=== PATIENT | female | born 1950 ===

== ENCOUNTER 2017-06-14 16:49 | Emergency (ER) | payer MEDICARE, MEDICAID ==
[2017-06-14 17:18] VITALS: BP 129/81; PULSE 69; RESP 18; TEMP 97.9; O2SAT 99
--- NOTE | 2017-06-14 18:54 | ED PDOC ---
Upper Extremity Pain/Injury Time Seen by Provider: 06/14/17 18:45 Chief Complaint (Nursing): Upper Extremity Problem/Injury Chief Complaint (Provider): Left Shoulder Pain History/Exam Limitations: no limitations Onset/Duration Of Symptoms: Days Current Symptoms Are (Timing): Still Present Quality: "Pain" Exacerbating Factor(s): Movement Additional Complaint(s): 67 year old female presents to the ED complaining of left shoulder pain that had progressively gotten worse. The patient states that she was given naproxen for pain but it wiseman her stomach and so she has not been taking it. As per daughter, the patient is scheduled to have an MRI performed for a rotator cuff. Patient states that she cannot lift harm arm due to pain. PMD: [facility] Past Medical History Reviewed: Historical Data, Nursing Documentation, Vital Signs Vital Signs: Last Vital Signs Temp 97.9 F 06/14/17 17:15 Pulse 69 06/14/17 17:15 Resp 18 06/14/17 17:15 BP 129/81 06/14/17 17:15 Pulse Ox 99 06/14/17 17:15 - Medical History PMH: No Chronic Diseases - Surgical History Surgical History: No Surg Hx - Family History Family History: States: Unknown Family Hx - Living Arrangements Living Arrangements: With Family - Social History Current smoker - smoking cessation education provided: No Ex-Smoker (has not smoked in the last 12 months): No Alcohol: None Drugs: Denies - Home Medications Home Medications: Ambulatory Orders Medication Instructions Recorded Acetaminophen [Acetaminophen Extra 2 tab PO Q6 PRN #24 tablet 06/14/17 Strength] Lansoprazole [Prevacid] 30 mg PO DAILY #14 capsule. 06/14/17 Tramadol HCl [Ultram] 1 tab PO Q12 PRN #8 tablet 06/14/17 - Allergies Allergies/Adverse Reactions: Allergies Allergy/AdvReac Type Severity Reaction Status Date / Time No Known Allergies Allergy Verified 06/14/17 17:15 Physical Exam - Reviewed Nursing Documentation Reviewed: Yes Vital Signs Reviewed: Yes - Physical Exam Appears: Positive for: Non-toxic, No Acute Distress Skin: Positive for: Normal Color, Warm, Dry. Negative for: Rash Eye Exam: Positive for: Normal appearance, EOMI, PERRL Cardiovascular/Chest: Positive for: Regular Rate, Rhythm, Chest Non Tender. Negative for: Tachycardia Respiratory: Positive for: Normal Breath Sounds. Negative for: Wheezing, Respiratory Distress Extremity: Positive for: Normal ROM (Limited ROM of left shoulder on exam secondary to pain), Tenderness (Anterior AC joint tenderness), Other (Anterior AC joint pain). Negative for: Deformity, Swelling Neurologic/Psych: Positive for: Alert, Oriented - ECG O2 Sat by Pulse Oximetry: 99 (RA) Pulse Ox Interpretation: Normal Medical Decision Making Medical Decision Makin Initial Impression 67 y/o female presenting with left shoulder pain Initial Plan: * Reevaluation PROCEDURE: Radiographs of the Left Shoulder - Performed 05/19/2017 HISTORY: M75.02 COMPARISON: No prior. FINDINGS: BONES: No acute fracture. JOINTS: Mild acromioclavicular degenerative changes. SOFT TISSUES: Normal. OTHER FINDINGS: None. IMPRESSION: No demonstrated fracture or dislocation. Documented by Danelle Ashley acting as a scribe for Torey Samuel PA-C. All medical record entries made by the Scribe were at my direction and personally dictated by me. I have reviewed the chart and agree that the record accurately reflects my personal performance of the history, physical exam, medical decision making, and the department course for this patient. I have also personally directed, reviewed, and agree with the discharge instructions and disposition. Disposition - Clinical Impression Clinical Impression: Shoulder pain - Disposition Condition: FAIR Prescriptions: Acetaminophen [Acetaminophen Extra Strength] 2 tab PO Q6 PRN #24 tablet PRN Reason: Pain, Moderate (4-7) Lansoprazole [Prevacid] 30 mg PO DAILY #14 capsule. Tramadol HCl [Ultram] 1 tab PO Q12 PRN #8 tablet PRN Reason: Pain, Severe (8-10) Instructions: Shoulder Sprain (ED) Forms: [employer] (Latvian) Print Language: LAO
== END 2017-06-14 19:21 | disposition home or self-care (01) ==
LOC: H.ER 16:49
DX: M25.512 Pain in left shoulder (principal)

== ENCOUNTER 2017-06-17 09:53 | Emergency (ER) | payer MEDICARE, MEDICAID ==
[2017-06-17 10:25] VITALS: BMI 27.6
[2017-06-17 10:30] VITALS: RESP 18; O2SAT 98
--- NOTE | 2017-06-17 11:29 | ED PDOC ---
HPI: CCC, URI, Sore Throat Time Seen by Provider: 06/17/17 10:42 Chief Complaint (Nursing): ENT Problem Chief Complaint (Provider): Sore throat History Per: Patient Additional Complaint(s): 67 yo female, PMH of Hypothyroid, presents to ED with complaints of sorethroat, pain upon swallowing since last night. No fever or chills, SOB, cough, congestion. no medications taken to alleviate symptoms thus far Past Medical History Reviewed: Nursing Documentation, Vital Signs Vital Signs: Last Vital Signs Temp 97.7 F 06/17/17 10:27 Pulse 61 06/17/17 10:27 Resp 18 06/17/17 10:27 BP 120/81 06/17/17 10:27 Pulse Ox 98 06/17/17 11:29 - Medical History PMH: No Chronic Diseases - Surgical History Surgical History: No Surg Hx - Family History Family History: States: Unknown Family Hx - Living Arrangements Living Arrangements: With Family - Social History Current smoker - smoking cessation education provided: No Ex-Smoker (has not smoked in the last 12 months): Yes Alcohol: None Drugs: Denies - Home Medications Home Medications: Ambulatory Orders Medication Instructions Recorded Acetaminophen [Acetaminophen Extra 2 tab PO Q6 PRN #24 tablet 06/14/17 Strength] Lansoprazole [Prevacid] 30 mg PO DAILY #14 capsule.dr 06/14/17 Tramadol HCl [Ultram] 1 tab PO Q12 PRN #8 tablet 06/14/17 Guaifenesin/Pseudoephedrne HCl 1 tab PO DAILY PRN #30 ter 06/17/17 [Mucinex D 600 mg-60 mg] Ibuprofen [Motrin] 600 mg PO Q6 #20 tab 06/17/17 - Allergies Allergies/Adverse Reactions: Allergies Allergy/AdvReac Type Severity Reaction Status Date / Time No Known Allergies Allergy Verified 06/14/17 17:15 Review of Systems ROS Statement: Except As Marked, All Systems Reviewed And Found Negative ENT: Positive for: Throat Pain Physical Exam - Reviewed Nursing Documentation Reviewed: Yes Vital Signs Reviewed: Yes - Physical Exam Appears: Positive for: Well, Non-toxic, No Acute Distress Head Exam: Positive for: ATRAUMATIC, NORMAL INSPECTION, NORMOCEPHALIC Skin: Positive for: Normal Color, Warm, DRY Eye Exam: Positive for: EOMI, Normal appearance, PERRL ENT: Positive for: Normal ENT Inspection, Pharyngeal Erythema. Negative for: Tonsillar Exudate, Tonsillar Swelling Neck: Positive for: Normal, Painless ROM Cardiovascular/Chest: Positive for: Regular Rate, Rhythm Respiratory: Positive for: CNT, Normal Breath Sounds Gastrointestinal/Abdominal: Positive for: Normal Exam, Bowel Sounds, Soft Back: Positive for: Normal Inspection Extremity: Positive for: Normal ROM Neurologic/Psych: Positive for: Alert, Oriented - ECG O2 Sat by Pulse Oximetry: 98 Medical Decision Making Medical Decision Making: strep negative. physical exam findings benign Supportive care measures discussed Disposition - Clinical Impression Clinical Impression: Pharyngitis - Patient ED Disposition Is Patient to be Admitted: No - Disposition Disposition: Routine/Home Disposition Time: 13:49 Condition: STABLE Prescriptions: Guaifenesin/Pseudoephedrne HCl [Mucinex D 600 mg-60 mg] 1 tab PO DAILY PRN #30 ter PRN Reason: congestion Ibuprofen [Motrin] 600 mg PO Q6 #20 tab Instructions: Pharyngitis (ED) Forms: [employer] (Setswana) Print Language: KOSOVAN - POA Present On Arrival: None
[2017-06-17 14:19] VITALS: BP 120/80; PULSE 80; TEMP 98.6
== END 2017-06-17 14:19 | disposition home or self-care (01) ==
LOC: H.ER 09:53
DX: J02.9 Acute pharyngitis, unspecified (principal); E03.9 Hypothyroidism, unspecified

== ENCOUNTER 2017-08-31 22:42 | Emergency (ER) | payer MEDICARE, MEDICAID ==
[2017-08-31 22:43] VITALS: BMI 27.6
[2017-08-31] MEDS ORDERED: Hydrogen Peroxide 3% Soln (480ml) TP ONE (22:51)
--- NOTE | 2017-08-31 23:14 | ED PDOC ---
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 Patient states that she was attempting to sit on her bed when she slipped, fell back, and hit her head on the corner of the wall. (-) LOC, nausea, vomiting, focal weakness, or blurry vision. (+) lightheadedness and laceration to posterior head. Family notes that patient seems confused and "out of it". Pt had taken tramadol prior to trying to go to bed. PCP: Clinic Past Medical History Reviewed: Historical Data, Nursing Documentation, Vital Signs Vital Signs: Last Vital Signs Temp 97.7 F 08/31/17 22:45 Pulse 85 08/31/17 22:45 Resp 18 08/31/17 22:45 BP 192/78 H 08/31/17 22:45 Pulse Ox 97 08/31/17 22:45 - Medical History PMH: HTN, Hypercholesterolemia, Hypothyroidism, Chronic Pain (left shoulder) - Surgical History Surgical History: Denies: No Surg Hx Other surgeries: tubal ligation, thyroid surgery - Family History Family History: States: Diabetes, Hypertension - Social History Current smoker - smoking cessation education provided: No Ex-Smoker (has not smoked in the last 12 months): No Alcohol: None Drugs: Denies - Home Medications Home Medications: Ambulatory Orders Medication Instructions Recorded Acetaminophen [Acetaminophen Extra 2 tab PO Q6 PRN #24 tablet 06/14/17 Strength] Lansoprazole [Prevacid] 30 mg PO DAILY #14 capsule. 06/14/17 Tramadol HCl [Ultram] 1 tab PO Q12 PRN #8 tablet 06/14/17 Guaifenesin/Pseudoephedrne HCl 1 tab PO DAILY PRN #30 ter 06/17/17 [Mucinex D 600 mg-60 mg] Ibuprofen [Motrin] 600 mg PO Q6 #20 tab 06/17/17 - Allergies Allergies/Adverse Reactions: Allergies Allergy/AdvReac Type Severity Reaction Status Date / Time No Known Allergies Allergy Verified 06/14/17 17:15 Review of Systems ROS Statement: Except As Marked, All Systems Reviewed And Found Negative Eyes: Negative for: Vision Change Gastrointestinal: Negative for: Nausea, Vomiting Musculoskeletal: Positive for: Other ((+) head pain: posterior head laceration) Neurological: Positive for: Other ((+) lightheadedness, (-) LOC). Negative for : Weakness Physical Exam - Reviewed Nursing Documentation Reviewed: Yes Vital Signs Reviewed: Yes - Physical Exam Appears: Positive for: Non-toxic, No Acute Distress (but tired appearing) Head Exam: Positive for: NORMOCEPHALIC. Negative for: ATRAUMATIC (1.5 cm linear superficial laceration on the right occiput. Boggy hematoma underlying the laceration.) Skin: Positive for: Normal Color, Warm, Dry Eye Exam: Positive for: Normal appearance, EOMI, PERRL ENT: Positive for: Normal ENT Inspection ((-) hemotympanum bilaterally) Neck: Positive for: Painless ROM, Supple Cardiovascular/Chest: Positive for: Regular Rate, Rhythm. Negative for: Murmur Respiratory: Positive for: Normal Breath Sounds. Negative for: Respiratory Distress Gastrointestinal/Abdominal: Positive for: Soft. Negative for: Tenderness Back: Positive for: Normal Inspection. Negative for: Decreased ROM Extremity: Positive for: Normal ROM. 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 Negative for: Facial Droop - Laboratory Results Result Diagrams: 08/31/17 23:28 08/31/17 23:28 - ECG O2 Sat by Pulse Oximetry: 97 (RA) Pulse Ox Interpretation: Normal Medical Decision Making Medical Decision Makin Initial impression: head injury, fall, scalp laceration DDx: traumatic brain injury, dehydration, adverse drug reaction, skull fracture Initial plan: * T&S * CT HEAD * EtOH serum * Labs * Magnesium * Phosphorus * PTT/PT EXAM: CT Head Without Intravenous Contrast CLINICAL HISTORY: 67 years old, female; Injury or trauma; Injury Patient states: She hit her head against, the corner of the wall; Initial encounter; Bleeding / hemorrhage; Additional info: Head injury TECHNIQUE: Axial computed tomography images of the head/brain without intravenous contrast. All CT scans at this facility use one or more dose reduction techniques, viz.: automated exposure control; ma/kV adjustment per patient size (including targeted exams where dose is matched to indication; i.e. head); or iterative reconstruction technique. Coronal and sagittal reformatted images were created and reviewed. COMPARISON: No relevant prior studies available. FINDINGS: Brain: Mild atrophy. No intracranial hemorrhage. No mass. Few scattered foci of decreased attenuation within periventricular/subcortical white matter. No edema. Ventricles: No hydrocephalus. Bones/joints: No acute fracture. Few small lucent calvarial lesions, nonspecific. Soft tissues: Minimal right occipital parietal soft tissue swelling. Vasculature: Mild atherosclerotic disease of intracranial arteries. Sinuses: Mild mucosal thickening of frontal, maxillary, sphenoid sinuses. Moderate to extensive mucosal thickening of ethmoid sinuses. Small air-fluid levels within maxillary sinuses. Mastoid air cells: No mastoid effusion. Orbits: Unremarkable as visualized. IMPRESSION: 1. No intracranial hemorrhage. 2. Nonspecific white matter changes. 3. Sinus disease. 4. Incidental/non-acute findings are described above. Thank you for allowing us to participate in the care of your patient. Dictated and Authenticated by: Matt Ronquillo MD Scalp and wound cleaned with peroxide. Wound well approximated with no gaping. Bacitracin applied to wound and gauze applied under ice pack. No need for skin asif/sutures. 2342 CT HEAD FINDINGS: Brain: Mild atrophy. No intracranial hemorrhage. No mass. Few scattered foci of decreased attenuation within periventricular/subcortical white matter. No edema. Ventricles: No hydrocephalus. Bones/joints: No acute fracture. Few small lucent calvarial lesions, nonspecific. Soft tissues: Minimal right occipital parietal soft tissue swelling. Vasculature: Mild atherosclerotic disease of intracranial arteries. Sinuses: Mild mucosal thickening of frontal, maxillary, sphenoid sinuses. Moderate to extensive mucosal thickening of ethmoid sinuses. Small air-fluid levels within maxillary sinuses. Mastoid air cells: No mastoid effusion. Orbits: Unremarkable as visualized. IMPRESSION: 1. No intracranial hemorrhage. 2. Nonspecific white matter changes. 3. Sinus disease. 4. Incidental/non-acute findings are described above. 0000 Discussed with patient and family the imaging results. Patient verbalized understanding. Discussed case with family practice resident to schedule urgent follow up in 1-2 days. Blood pressure normalized without any medication. Patient is stable for discharge. Scribe Attestation: Documented by Raegan Guillory acting as a scribe for Anh Anderson MD. Scribe Attestation: All medical record entries made by the Scribe were at my direction and personally dictated by me. I have reviewed the chart and agree that the record accurately reflects my personal performance of the history, physical exam, medical decision making, and the department course for this patient. I have also personally directed, reviewed, and agree with the discharge instructions and disposition. Disposition - Clinical Impression Clinical Impression: Head injury, closed, Scalp laceration Counseled Patient/Family Regarding: Studies Performed, Diagnosis, Need For Followup - Disposition Referrals: [facility] [Outside] - 09/02/17 (CALL TOMORROW TO SETUP FOLLOW UP APPOINTMENT WITHINT 48 HOURS FOR REEVALUATION) Disposition: Routine/Home Disposition Time: 23:58 Condition: IMPROVED Instructions: Preventing Falls in the Older Adult, Wound Care (DC), Closed Head Injury (DC)
[2017-08-31 23:30] LABS: BASO % 0.7 % (0.0-2.0); EOS # 0.5 K/uL (0.0-0.7); EOS % 7.7 % (0.0-4.0); HEMOGLOBIN 11.2 g/dL (12.0-16.0); LYMPH # 1.6 K/uL (1.0-4.3); LYMPH % 23.9 % (20.0-40.0); MEAN CELL VOLUME 88.4 fl (81.0-99.0); MEAN CORPUSCULAR HEMOGLOBIN 29.2 pg (27.0-31.0); MEAN CORPUSCULAR HGB CONC 33.1 g/dL (33.0-37.0); MEAN PLATELET VOLUME 8.1 fl (7.2-11.7); MONO # 0.5 K/uL (0.0-0.8); MONO % 8.2 % (0.0-10.0); NEUT # 3.9 K/uL (1.8-7.0); NEUT % 59.5 % (50.0-75.0); NRBC % 0.1 % (0.0-0.0); RBC 3.83 Mil/uL (3.80-5.20); RED CELL DISTRIBUTION WIDTH 13.4 % (11.5-14.5); WHITE BLOOD COUNT 6.6 K/uL (4.8-10.8)
[2017-08-31] MEDS ORDERED: Alum-Mag Hydrox-Simethicone Susp (30 mL) PO STA (23:38)
[2017-08-31 23:40] LABS: ALB/GLOB RATIO 1.2 (1.0-2.1); ALBUMIN 3.8 g/dL (3.5-5.0); ALT/SGPT 30 U/L (9-52); AST/SGOT 35 U/L (14-36); BLOOD UREA NITROGEN 21 mg/dl (7-17); CALCIUM 8.9 mg/dL (8.4-10.2); GFR AFRICAN-AMERICAN > 60; GFR NON-AFRICAN AMERICAN > 60
--- NOTE | 2017-08-31 23:42 | CT ---
EXAM: CT Head Without Intravenous Contrast CLINICAL HISTORY: 67 years old, female; Injury or trauma; Injury Patient states: She hit her head against, the corner of the wall; Initial encounter; Bleeding / hemorrhage; Additional info: Head injury TECHNIQUE: Axial computed tomography images of the head/brain without intravenous contrast. All CT scans at this facility use one or more dose reduction techniques, viz.: automated exposure control; ma/kV adjustment per patient size (including targeted exams where dose is matched to indication; i.e. head); or iterative reconstruction technique. Coronal and sagittal reformatted images were created and reviewed. COMPARISON: No relevant prior studies available. FINDINGS: Brain: Mild atrophy. No intracranial hemorrhage. No mass. Few scattered foci of decreased attenuation within periventricular/subcortical white matter. No edema. Ventricles: No hydrocephalus. Bones/joints: No acute fracture. Few small lucent calvarial lesions, nonspecific. Soft tissues: Minimal right occipital parietal soft tissue swelling. Vasculature: Mild atherosclerotic disease of intracranial arteries. Sinuses: Mild mucosal thickening of frontal, maxillary, sphenoid sinuses. Moderate to extensive mucosal thickening of ethmoid sinuses. Small air-fluid levels within maxillary sinuses. Mastoid air cells: No mastoid effusion. Orbits: Unremarkable as visualized. IMPRESSION: 1. No intracranial hemorrhage. 2. Nonspecific white matter changes. 3. Sinus disease. 4. Incidental/non-acute findings are described above.
[2017-09-01 00:01] LABS: PARTIAL THROMBOPLASTIN TIME 31.2 Seconds (25.6-37.1); PROTHROMBIN TIME 11.4 Seconds (9.8-13.1)
[2017-09-01 00:08] VITALS: BP 121/63; PULSE 69; RESP 18; TEMP 97.8
[2017-09-01 16:31] VITALS: O2SAT 97
== END 2017-09-01 00:20 | disposition home or self-care (01) ==
LOC: H.ER 22:42
DX: S01.01XA Laceration without foreign body of scalp, initial encounter (principal); Z87.891 Personal history of nicotine dependence; G89.29 Other chronic pain; I10 Essential (primary) hypertension; E03.9 Hypothyroidism, unspecified; E78.00 Pure hypercholesterolemia, unspecified; W01.0XXA Fall on same level from slipping, tripping and stumbling without subsequent striking against object, initial encounter
CPT/HCPCS: 70450; 80053; 82948; 83735; 84100; 85025; 85610; 85730; 86850; 86900; 99284; G0480

== ENCOUNTER 2018-02-13 12:31 | Emergency (ER) | payer MEDICARE, MEDICAID ==
[2018-02-13 12:38] VITALS: BP 136/79; PULSE 77; RESP 16; TEMP 97.6; O2SAT 98
[2018-02-13 12:39] VITALS: BMI 23.3
--- NOTE | 2018-02-13 12:54 | ED PDOC ---
HPI: Allergic Reaction Time Seen by Provider: 02/13/18 12:46 Chief Complaint (Nursing): Allergic Reaction Chief Complaint (Provider): Allergic reaction History Per: Patient History/Exam Limitations: no limitations Onset/Duration Of Symptoms: Days (4x days) Current Symptoms Are (Timing): Still Present Context: Food (pumpkin pie) Home/EMS Treatment: Benadryl Additional Complaint(s): 68 year old female with no pertinent past medical history presents to the ED with complaints of an allergic reaction that started 4x days ago. Patient reports feeling itchiness "everywhere", and swelling on her face after eating pumpkin pie 4x days ago. Patient reports taking benadryl with no relief. Patient denies shortness of breath and throat discomfort. PMD: [facility] Past Medical History Reviewed: Historical Data, Nursing Documentation, Vital Signs Vital Signs: Last Vital Signs Temp 97.6 F 02/13/18 12:37 Pulse 77 02/13/18 12:37 Resp 16 02/13/18 12:37 BP 136/79 02/13/18 12:37 Pulse Ox 98 02/13/18 12:37 - Medical History PMH: Hypercholesterolemia, Hypothyroidism, Chronic Pain (left shoulder) - Surgical History Other surgeries: thyroid surgery, tubal ligation - Family History Family History: States: Diabetes, Hypertension - Living Arrangements Living Arrangements: With Family - Social History Current smoker - smoking cessation education provided: No Alcohol: None Drugs: Denies - Home Medications Home Medications: Ambulatory Orders Medication Instructions Recorded Acetaminophen [Acetaminophen Extra 2 tab PO Q6 PRN #24 tablet 06/14/17 Strength] Lansoprazole [Prevacid] 30 mg PO DAILY #14 capsule. 06/14/17 Tramadol HCl [Ultram] 1 tab PO Q12 PRN #8 tablet 06/14/17 Guaifenesin/Pseudoephedrne HCl 1 tab PO DAILY PRN #30 ter 06/17/17 [Mucinex D 600 mg-60 mg] Ibuprofen [Motrin] 600 mg PO Q6 #20 tab 06/17/17 Prednisone 50 mg PO DAILY #6 tablet 02/13/18 - Allergies Allergies/Adverse Reactions: Allergies Allergy/AdvReac Type Severity Reaction Status Date / Time No Known Allergies Allergy Verified 06/14/17 17:15 Review of Systems ROS Statement: Except As Marked, All Systems Reviewed And Found Negative Constitutional: Negative for: Fever, Chills Skin: Positive for: Other (itchiness, swelling). Negative for: Rash Physical Exam - Reviewed Nursing Documentation Reviewed: Yes Vital Signs Reviewed: Yes - Physical Exam Appears: Positive for: Well, Non-toxic, No Acute Distress Head Exam: Positive for: ATRAUMATIC, NORMOCEPHALIC Skin: Positive for: Warm, Dry Eye Exam: Positive for: Periorbital swelling (bilateral), Other (no periorbital cellulitis) Cardiovascular/Chest: Positive for: Regular Rate, Rhythm Respiratory: Positive for: Normal Breath Sounds. Negative for: Wheezing, Respiratory Distress Extremity: Positive for: Other (slight erythema noted to upper extremities bilterally). Negative for: Pedal Edema Neurologic/Psych: Positive for: Alert, Oriented (3x) - ECG O2 Sat by Pulse Oximetry: 98 (RA) Pulse Ox Interpretation: Normal Disposition - Clinical Impression Clinical Impression: Allergic reaction - Patient ED Disposition Is Patient to be Admitted: No Counseled Patient/Family Regarding: Diagnosis, Need For Followup, Rx Given - Disposition Referrals: [facility] [Outside] Disposition: Routine/Home Disposition Time: 13:14 Condition: STABLE Additional Instructions: Continue with 2 tablets of benadryl every 6 hrs and take along with rx meds. Follow up next week with primary care doctor. Prescriptions: Prednisone 50 mg PO DAILY #6 tablet Instructions: Food Allergy Forms: [employer] ([place]) Medical Decision Making - Medication Orders Current Medication Orders: Discontinued Medications Methylprednisolone (Solu-Medrol) 125 mg IVP STAT STA Stop: 02/13/18 12:51 Last Admin: 02/13/18 12:55 Dose: 125 mg IVP Administration Document 02/13/18 12:55 ALQ (Rec: 02/13/18 12:55 ALQ [id number]) Charges for Administration # of IVP Administrations 1 Medical Decision Making Medical Decision Makin:46 Initial impression: 68 year old female with an allergic reaction Initial plan: * solumedrol 125 mg IVP Patient will be discharged home with Rx for prednisone and instructions to continue taking benadryl. Counseling was provided and all questions were answered regarding diagnosis. There is agreement to discharge plan. Return if symptoms persist or worsen. Scribe Attestation: Documented by Maida Triplett, acting as a scribe for Anh Logan PA-C. Provider Scribe Attestation: All medical record entries made by the Scribe were at my direction and personally dictated by me. I have reviewed the chart and agree that the record accurately reflects my personal performance of the history, physical exam, medical decision making, and the department course for this patient. I have also personally directed, reviewed, and agree with the discharge instructions and disposition.
== END 2018-02-13 13:45 | disposition home or self-care (01) ==
LOC: H.ER 12:31
DX: T78.40XA Allergy, unspecified, initial encounter (principal); E78.00 Pure hypercholesterolemia, unspecified; G89.29 Other chronic pain; E03.9 Hypothyroidism, unspecified
CPT/HCPCS: 96374; 99283; J2930

== ENCOUNTER 2018-03-16 19:11 | Emergency (ER) | payer MEDICAID, MEDICARE ==
[2018-03-16 19:12] VITALS: BMI 23.3
[2018-03-16 19:21] VITALS: TEMP 97.5; O2SAT 100
--- NOTE | 2018-03-16 20:51 | ED PDOC ---
HPI: Allergic Reaction Time Seen by Provider: 03/16/18 19:22 Chief Complaint (Nursing): Allergic Reaction Chief Complaint (Provider): Rash - Itchy History Per: Patient History/Exam Limitations: no limitations Onset/Duration Of Symptoms: Days (x3) Associated Symptoms: Skin Rash Additional Complaint(s): 68 y/o female presents to the ED complaining of itchy rash on her neck for x3 days. Patient denies any similar symptoms in the past. Patient states she was seen at the clinic and she has taken Benadryl but it provided no relief. Patient denies any changes in diet, clothing, or any other changes to behavior or environment. She denies shortness of breath or swelling in and around mouth. Patient states it was so itchy yesterday night that she couldn't sleep prompting ED visit. Past Medical History Reviewed: Historical Data, Nursing Documentation, Vital Signs Vital Signs: Last Vital Signs Temp 97.5 F L 03/16/18 19:17 Pulse 79 03/16/18 19:17 Resp 18 03/16/18 19:17 BP 108/78 03/16/18 19:17 Pulse Ox 100 03/16/18 19:17 - Medical History PMH: Hypercholesterolemia, Hypothyroidism, Chronic Pain (left shoulder) Denies: Asthma, Diabetes, HTN (patient denies), Chronic Kidney Disease - Surgical History Surgical History: No Surg Hx - Family History Family History: States: Unknown Family Hx, Diabetes, Hypertension - Home Medications Home Medications: Ambulatory Orders Medication Instructions Recorded Acetaminophen [Acetaminophen Extra 2 tab PO Q6 PRN #24 tablet 06/14/17 Strength] Lansoprazole [Prevacid] 30 mg PO DAILY #14 capsule. 06/14/17 Tramadol HCl [Ultram] 1 tab PO Q12 PRN #8 tablet 06/14/17 Guaifenesin/Pseudoephedrne HCl 1 tab PO DAILY PRN #30 ter 06/17/17 [Mucinex D 600 mg-60 mg] Ibuprofen [Motrin] 600 mg PO Q6 #20 tab 06/17/17 Prednisone 50 mg PO DAILY #6 tablet 02/13/18 predniSONE [predniSONE Tab] 20 mg PO DAILY #12 tab 03/16/18 - Allergies Allergies/Adverse Reactions: Allergies Allergy/AdvReac Type Severity Reaction Status Date / Time almond Allergy RASH Verified 11/13/18 19:22 peanut Allergy RASH Verified 03/16/18 19:22 hot sauce Allergy RASH Uncoded 03/16/18 19:22 Review of Systems ROS Statement: Except As Marked, All Systems Reviewed And Found Negative ENT: Negative for: Throat Swelling Respiratory: Negative for: Shortness of Breath Skin: Positive for: Rash (anterior neck) Physical Exam - Reviewed Nursing Documentation Reviewed: Yes Vital Signs Reviewed: Yes - Physical Exam Appears: Positive for: Well, Non-toxic, No Acute Distress Head Exam: Positive for: ATRAUMATIC, NORMOCEPHALIC Skin: Positive for: Rash (erythematous rash to anterior neck) Eye Exam: Positive for: EOMI, Normal appearance, PERRL Neck: Positive for: Normal, Painless ROM, Supple Cardiovascular/Chest: Positive for: Regular Rate, Rhythm. Negative for: Murmur, Bradycardia, Tachycardia Respiratory: Positive for: Normal Breath Sounds. Negative for: Respiratory Distress Extremity: Positive for: Normal ROM. Negative for: Pedal Edema, Deformity Neurologic/Psych: Positive for: Alert, Oriented. Negative for: Motor/Sensory Deficits - ECG O2 Sat by Pulse Oximetry: 100 (RA) Pulse Ox Interpretation: Normal Disposition - Clinical Impression Clinical Impression: Contact dermatitis - Patient ED Disposition Is Patient to be Admitted: No Counseled Patient/Family Regarding: Diagnosis, Need For Followup, Rx Given - Disposition Referrals: [facility] [Outside] Disposition: Routine/Home Disposition Time: 20:50 Condition: GOOD Prescriptions: predniSONE [predniSONE Tab] 20 mg PO DAILY #12 tab Instructions: Contact Dermatitis (DC) Forms: [employer] (Occitan) Print Language: MALTESE Medical Decision Making Medical Decision Making: Time: 19:33 Initial Impression: rash to neck Initial Plan: * Solumedrol Scribe Attestation: Documented by Pollo Steinberg, acting as a scribe for Sloane Emanuel PA-C. Provider Scribe Attestation: All medical record entries made by the Scribe were at my direction and personally dictated by me. I have reviewed the chart and agree that the record accurately reflects my personal performance of the history, physical exam, medical decision making, and the department course for this patient. I have also personally directed, reviewed, and agree with the discharge instructions and disposition.
[2018-03-16 20:57] VITALS: BP 111/62; PULSE 77; RESP 20
== END 2018-03-16 20:56 | disposition home or self-care (01) ==
LOC: H.ER 19:11
DX: L25.9 Unspecified contact dermatitis, unspecified cause (principal); E03.9 Hypothyroidism, unspecified; E78.00 Pure hypercholesterolemia, unspecified; G89.29 Other chronic pain
CPT/HCPCS: 96372; 99282; J2930